=== PATIENT | female | born 1975 | race Asian ===

== ENCOUNTER 2017-12-11 08:27 | Inpatient (IN) | payer SELFPAY ==
[~2017-12-11] VITALS: Ht 154.9 cm; Wt 100.2 kg
[2017-12-11] MEDS ORDERED: NITROGLYCERIN OINT 1GM/INCH UDPKT TD ONE (10:15)
[2017-12-11] MEDS ORDERED: ASPIRIN 81MG TABLET PO ONE (10:15)
[2017-12-11] MEDS ORDERED: FUROSEMIDE 40MG/4ML VIAL IV ONE (10:15)
[2017-12-11 10:27] LABS: BASOPHILS % 1.4 % (0.0-2.0); EOSINOPHILS % 6.3 % (0.0-5.0); HEMATOCRIT. 32.9 % (36.0-48.0); HEMOGLOBIN. 11.4 g/dL (12.0-16.0); LYMPHOCYTES % 18.9 % (20.0-50.0); MEAN CORPUSCULAR HEMOGLOBIN 37.1 pg (28.0-32.0); MEAN CORPUSCULAR VOLUME 107.2 fL (81.0-99.0); MEAN PLATELET VOLUME 9.7 fl (7.4-10.4); MONOCYTES % 13.7 % (2.0-8.0); NEUTROPHILS % 59.7 % (40.0-76.0); PLATELET 116 x1000/uL (130-400); RED BLOOD CELL COUNT 3.07 mill/uL (4.2-5.4); RED CELL DISTRIBUTION WIDTH 15.4 % (11.6-14.6)
[2017-12-11 10:27] LABS: BG BASE EXCESS 0.5 mmol/L (-2.0-2.0); BG CARBOXYHEMOGLOBIN 0.9 % (0.5-1.5); BG DEOXYHEMOGLOBIN 7.2 % (0.0-5.0); BG HCO3 ACT 23.9 mmol/L (22.0-26.0); BG METHEMOGLOBIN 0.3 % (0.0-1.5); BG OXYGEN SATURATION 92.7 % (92.0-98.5); BG OXYHEMOGLOBIN 91.6 % (94.0-97.0); BG PCO2 34.2 mmHg (35.0-45.0); BG PH 7.462 (7.350-7.450); BG PO2 65.3 mmHg (75.0-100.0); BG SAMPLE SITE RIGHT BRACHIAL; BG TOTAL HEMOGLOBIN 11.4 g/dL (12.0-18.0); BG VENT MODE NASAL CANNULA
[2017-12-11 12:03] LABS: CHLORIDE 104 mEq/L (98-107)
[2017-12-11 12:04] LABS: HCG SCREEN NEGATIVE
[2017-12-11 12:13] LABS: INR 1.6; PARTIAL THROMBOPLASTIN TIME 34.3 sec (23.4-31.0); PROTHROMBIN TIME 15.8 sec (9.1-11.1)
[2017-12-11 13:08] LABS: HEPATITIS B SURFACE ANTIGEN NEGATIVE
[2017-12-11 13:36] LABS: HEPATITIS B CORE AB IGM NEGATIVE
[2017-12-11 13:52] LABS: HEPATITIS A AB IGM NEGATIVE (NEGATIVE)
[2017-12-11] MEDS ORDERED: MAGNESIUM/ALUMINUM HYDROXIDE/SIMETHICONE 30ML UDC PO PRN (15:45)
[2017-12-11] MEDS ORDERED: ONDANSETRON HCL 4MG/2ML VIAL IV PRN (15:45)
[2017-12-11] MEDS ORDERED: NA PHOS,M-B/NA PHOS,DI-BA ENEMA 118ML PR PRN (15:45)
[2017-12-11] MEDS ORDERED: CLONIDINE 0.1MG TABLET PO PRN (15:45)
[2017-12-11] MEDS ORDERED: ACETAMINOPHEN 650MG SUPP PR PRN (15:45)
[2017-12-11] MEDS ORDERED: DOCUSATE SODIUM 100MG CAPSULE PO PRN (15:45)
[2017-12-11] MEDS ORDERED: IPRATROPIUM/ALBUTEROL 0.5-3(2.5)MG/3ML NEB INH PRN (15:45)
[2017-12-11] MEDS ORDERED: DIPHENHYDRAMINE 50MG/ML VIAL IV PRN (15:45)
[2017-12-11] MEDS ORDERED: ACETAMINOPHEN 650MG/20.3ML UDC GT PRN (15:45)
[2017-12-11] MEDS ORDERED: ACETAMINOPHEN 325MG TABLET PO PRN (15:45)
[2017-12-11] MEDS ORDERED: GUAIFENESIN 200MG/10ML SUGAR FREE UDC PO PRN (15:45)
[2017-12-11] MEDS ORDERED: HYDROCODONE/ACETAMINOPHEN 5/325MG TABLET PO PRN (15:45)
[2017-12-11 16:30] VITALS: BP 119/81
[2017-12-11 17:50] LABS: CLARITY URINE TURBID (CLEAR); COLOR URINE ORANGE (YELLOW); KETONES URINE NEGATIVE (NEGATIVE); LEUKOCYTE ESTERASE URINE 1+ (NEGATIVE); NITRITE URINE POSITIVE (NEGATIVE); OCCULT BLOOD URINE 3+ (NEGATIVE); PROTEIN URINE TRACE (NEGATIVE); SPECIFIC GRAVITY URINE 1.035 (1.005-1.030)
[2017-12-11 18:08] LABS: *AMPHETAMINES SCREEN URINE NEGATIVE (NEGATIVE); *BENZODIAZEPINES SCREEN URINE NEGATIVE (NEGATIVE); *COCAINE SCREEN URINE NEGATIVE (NEGATIVE); METHADONE URINE SCREEN NEGATIVE (NEGATIVE); OPIATES URINE SCREEN NEGATIVE (NEGATIVE); PHENCYCLIDINE URINE SCREEN NEGATIVE (NEGATIVE)
[2017-12-11 18:09] LABS: *BARBITURATES SCREEN URINE NEGATIVE (NEGATIVE)
[2017-12-11 18:11] LABS: CANNABINOID URINE SCREEN PRESUMTIVE POSITIVE (NEGATIVE)
[2017-12-11 19:35] VITALS: BP 119/81
[2017-12-11 20:00] VITALS: BP 128/80
[2017-12-11] MEDS: SODIUM CHLORIDE 0.9% INJ 3ML FLUSH IVF SCH (22:00)
[2017-12-11 23:37] LABS: CREATINE KINASE 82 IU/L (26-192)
[2017-12-11 23:39] LABS: CREATINE KINASE MB FRACTION 1.1 ng/mL (0.5-3.6)
[2017-12-12] VITALS (8 sets, daily range): BP systolic 95–129; BP diastolic 56–85
[2017-12-12] MEDS: SODIUM CHLORIDE 0.9% INJ 3ML FLUSH IVF SCH ×3 (06:00→22:00)
[2017-12-12 06:20] LABS: INR 1.5; PROTHROMBIN TIME 15.2 sec (9.1-11.1)
[2017-12-12 06:34] LABS: CHLORIDE 103 mEq/L (98-107)
[2017-12-12 06:51] LABS: CREATINE KINASE 87 IU/L (26-192)
[2017-12-12 06:52] LABS: HDL CHOLESTEROL 39 mg/dL (40-59)
[2017-12-12 06:53] LABS: LDL CHOLESTEROL 100 mg/dL (5-100)
[2017-12-12 07:00] LABS: CREATINE KINASE MB FRACTION < 1.0 ng/mL (0.5-3.6)
[2017-12-12 07:13] LABS: BASOPHILS % 0.9 % (0.0-2.0); EOSINOPHILS % 12.6 % (0.0-5.0); HEMATOCRIT. 29.9 % (36.0-48.0); HEMOGLOBIN. 10.5 g/dL (12.0-16.0); LYMPHOCYTES % 18.7 % (20.0-50.0); MEAN CORPUSCULAR HEMOGLOBIN 37.6 pg (28.0-32.0); MEAN CORPUSCULAR VOLUME 107.3 fL (81.0-99.0); MEAN PLATELET VOLUME 8.7 fl (7.4-10.4); MONOCYTES % 13.7 % (2.0-8.0); NEUTROPHILS % 54.1 % (40.0-76.0); PLATELET 93 x1000/uL (130-400); RED BLOOD CELL COUNT 2.79 mill/uL (4.2-5.4); RED CELL DISTRIBUTION WIDTH 15.5 % (11.6-14.6)
[2017-12-12] MEDS: FUROSEMIDE 40MG/4ML VIAL IV SCH (08:58)
[2017-12-12] MEDS ORDERED: LIDOCAINE HCL/PF 1% 10 MG/ML 30ML VIAL ONE (12:23)
[2017-12-12] MEDS ORDERED: SODIUM BICARBONATE 4% (2.4MEQ) 5ML VIAL IV ONE (12:23)
[2017-12-12 13:59] LABS: FOLIC ACID (FOLATE) SERUM 4.8 ng/mL (>5.38)
[2017-12-12] MEDS ORDERED: POTASSIUM CHLORIDE 20MEQ TABLET SR PO NR (16:30)
[2017-12-12] MEDS ORDERED: DIATR MEGLU/DIATRIZOATE SOLN 30ML PO SCH (21:15)
[2017-12-13] VITALS: BP 106/47
[2017-12-13 04:00] VITALS: BP 98/50
[2017-12-13] MEDS: SODIUM CHLORIDE 0.9% INJ 3ML FLUSH IVF SCH ×3 (05:50→21:06)
[2017-12-13 06:51] LABS: AMMONIA 39 uMol/L (<32)
[2017-12-13 07:00] LABS: BASOPHILS % 1.1 % (0.0-2.0); CHLORIDE 105 mEq/L (98-107); EOSINOPHILS % 6.6 % (0.0-5.0); HEMATOCRIT. 29.1 % (36.0-48.0); HEMOGLOBIN. 10.3 g/dL (12.0-16.0); LYMPHOCYTES % 21.5 % (20.0-50.0); MEAN CORPUSCULAR HEMOGLOBIN 37.6 pg (28.0-32.0); MEAN CORPUSCULAR VOLUME 106.1 fL (81.0-99.0); MEAN PLATELET VOLUME 8.7 fl (7.4-10.4); MONOCYTES % 11.5 % (2.0-8.0); NEUTROPHILS % 59.3 % (40.0-76.0); PLATELET 91 x1000/uL (130-400); RED BLOOD CELL COUNT 2.74 mill/uL (4.2-5.4); RED CELL DISTRIBUTION WIDTH 15.2 % (11.6-14.6)
[2017-12-13 07:09] LABS: LDL CHOLESTEROL 85 mg/dL (5-100)
[2017-12-13 07:11] LABS: CREATINE KINASE 71 IU/L (26-192); HDL CHOLESTEROL 31 mg/dL (40-59)
[2017-12-13 08:00] VITALS: BP 98/51
[2017-12-13] MEDS: FUROSEMIDE 40MG/4ML VIAL IV SCH (09:00)
[2017-12-13] MEDS: FOLIC ACID 1MG TABLET PO SCH (09:29)
[2017-12-13] MEDS ORDERED: IOHEXOL-300 100 ML BOTTLE ONE (09:36)
[2017-12-13] MEDS: FUROSEMIDE 40MG TABLET PO SCH (15:25)
[2017-12-13] MEDS: SPIRONOLACTONE 50MG TABLET PO SCH (17:45)
[2017-12-13 20:00] VITALS: BP 106/63
[2017-12-14] VITALS (24 sets, daily range): BP systolic 88–114; BP diastolic 39–67
[2017-12-14] MEDS: SODIUM CHLORIDE 0.9% INJ 3ML FLUSH IVF SCH ×2 (05:51→14:00)
[2017-12-14 06:22] LABS: HEMOGLOBIN. 10.4 g/dL (12.0-16.0); LYMPHOCYTES % 18.9 % (20.0-50.0); MEAN CORPUSCULAR HEMOGLOBIN 37.2 pg (28.0-32.0); MEAN PLATELET VOLUME 9.2 fl (7.4-10.4); MONOCYTES % 12.1 % (2.0-8.0); PLATELET 95 x1000/uL (130-400); RED CELL DISTRIBUTION WIDTH 15.4 % (11.6-14.6)
[2017-12-14 06:27] LABS: INR 1.6; PARTIAL THROMBOPLASTIN TIME 30.3 sec (23.4-31.0); PROTHROMBIN TIME 15.7 sec (9.1-11.1)
[2017-12-14 06:33] LABS: CHLORIDE 103 mEq/L (98-107)
[2017-12-14] MEDS: SPIRONOLACTONE 50MG TABLET PO SCH (06:53)
[2017-12-14] MEDS ORDERED: SODIUM BICARBONATE 4% (2.4MEQ) 5ML VIAL IV ONE (08:24)
[2017-12-14] MEDS ORDERED: LIDOCAINE HCL 1% 10 MG/ML 10ML VIAL ONE ×2 (08:25→09:04)
[2017-12-14] MEDS ORDERED: IOHEXOL-300 50 ML BOTTLE IV ONE (08:46)
[2017-12-14] MEDS ORDERED: FENTANYL CITRATE/PF 50MCG/ML 2ML VIAL ONE (09:13)
[2017-12-14] MEDS ORDERED: FENTANYL CITRATE/PF 50MCG/ML 2ML VIAL IV SCH (10:15)
[2017-12-14] MEDS: FUROSEMIDE 40MG TABLET PO SCH (11:21)
[2017-12-14] MEDS: FOLIC ACID 1MG TABLET PO SCH (11:21)
[2017-12-14 14:43] LABS: HEMATOCRIT 29.1 % (36.0-48.0); HEMOGLOBIN 10.2 g/dL (12.0-16.0)
[2017-12-15 13:09] LABS: MITOCHONDRIAL M2 AB 11.7 Units (0.0-20.0)
== END 2017-12-14 17:27 | disposition home or self-care (01) ==
LOC: ER 08:42 → EDBEDREQTM 13:05 → EDBEDREQ 13:05 → ENRESERV 14:56 → 7WST 18:09
PROVIDERS: ADMIT Family Medicine; ATTEND Family Medicine
PROC: 0W9G3ZZ Drainage of Peritoneal Cavity, Percutaneous Approach (ICD-10-PCS; principal; 2017-12-12)
PROC: 30233L1 Transfusion of Nonautologous Fresh Plasma into Peripheral Vein, Percutaneous Approach (ICD-10-PCS; 2017-12-12)
PROC: 30233K1 Transfusion of Nonautologous Frozen Plasma into Peripheral Vein, Percutaneous Approach (ICD-10-PCS; 2017-12-12)
PROC: 0W9G3ZZ Drainage of Peritoneal Cavity, Percutaneous Approach (ICD-10-PCS; 2017-12-14)
PROC: BW40ZZZ Ultrasonography of Abdomen (ICD-10-PCS; 2017-12-14)
PROC: 0FB03ZX Excision of Liver, Percutaneous Approach, Diagnostic (ICD-10-PCS; 2017-12-14)
PROC: B51T1ZZ Fluoroscopy of Portal and Splanchnic Veins using Low Osmolar Contrast (ICD-10-PCS; 2017-12-14)
DX: R18.8 Other ascites (principal); K72.00 Acute and subacute hepatic failure without coma; I50.31 Acute diastolic (congestive) heart failure; K76.6 Portal hypertension; D68.9 Coagulation defect, unspecified; R16.0 Hepatomegaly, not elsewhere classified; K74.60 Unspecified cirrhosis of liver; F12.90 Cannabis use, unspecified, uncomplicated; R74.0 Nonspecific elevation of levels of transaminase and lactic acid dehydrogenase [LDH]; D64.9 Anemia, unspecified
CPT/HCPCS: 36415; 36430; 36600; 49083; 71045; 74178; 76700; 76937; 77002; 80048; 80053; 80061; 80076; 80305; 81003; 82105; 82140; 82375; 82390; 82550; 82553; 82607; 82728; 82746; 82805; 83516; 83735; 83880; 84443; 84484; 84703; 85014; 85018; 85025; 85379; 85384; 85610; 85730; 86038; 86705; 86709; 86803; 86850; 86900; 86927; 87070; 87205; 87340; 88108; 88307; 88312; 88313; 89050; 93005; 93306; 96374; 97162; 99152; 99153; 99285; C1725; C1766; C1769; J1644; J1940; J3010; J3490; J7040; J7050; L8514; P9017; Q9963; Q9967; A4315